=== PATIENT | male | born 1970 | race Caucasian/White ===

== ENCOUNTER 2020-01-03 19:54 | Emergency (ER) | payer OTHER, SELFPAY ==
[2020-01-03 20:19] VITALS: BP 148/88; PULSE 91; RESP 18; TEMP 36.6; O2SAT 98; BMI 28.4
--- NOTE | 2020-01-03 21:08 | ED_ITS ---
HPI - Head Injury General: Chief complaint: Head Injury Stated complaint: head lac Time Seen by Provider: 01/03/20 21:08 Source: patient Mode of arrival: ambulatory Limitations: no limitations History of Present Illness: HPI Narrative: Patient was on the boat and slipped and fell hitting his head against the side of the boat. No loss of consciousness was reported. Patient appears well. Patient is intoxicated but responds appropriately to question. Patient appears in no pain. MD Complaint: head injury Review of Systems General: Reports: 10 or more systems reviewed and unremarkable except in HPI and below Skin/Breast: Reports: other (Scalp laceration) Physical Exam Const: COMMON NORMALS: no acute distress and patient oriented x3 GENERAL APPEARANCE: cooperative HENMT: COMMON NORMALS: TM's normal bilaterally and Normal external nose present HEAD & SCALP: normal to inspection and other (4 cm linear laceration to the right frontal scalp.) NOSE: Normal external nose present TYMPANIC MEMBRANE: TM's normal bilaterally MOUTH: Normal oral and palatal mucosa present THROAT: posterior oropharynx normal Eye: GENERAL EYE: appearance normal, both eyes and all related structures Neck/C-Spine: COMMON NORMALS: full ROM Lymph: LYMPHATIC: no lymphadenopathy noted Chest: COMMONS NORMALS: normal inspection of the chest Resp: COMMON NORMALS: normal respiratory effort EFFORT & INSPECTION: Yes able to speak in complete sentences Cardio: COMMON NORMALS: regular rate and regular rhythm RATE: regular rate RHYTHM: regular rhythm GI: COMMON NORMALS: non-tender : COMMON NORMALS: Yes no CVA tenderness BLADDER/KIDNEY EXAM: Yes no CVA tenderness Back/Pelvis: COMMON NORMALS: no CVA tenderness and thoracic and lumbar spine normal to inspection Extremity: COMMON NORMALS: normal to inspection Neuro: COMMON NORMALS: patient oriented x3 and moves all extremities Psych: COMMON NORMALS: mental status grossly normal and cooperative Skin: COMMON NORMALS: no rashes or lesions noted GENERAL SKIN EXAM: no rashes or lesions noted Procedures Laceration Laceration 1: Site: scalp Size (cm): 5 Description: linear Depth: simple, single layer Local Anesthetic: lidocaine 1% and with epi Amount of anesthesia used (mL): 6 Pre-repair: wound explored and irrigated extensively Skin layer closed with: other (staple) Number of sutures: 10 Technique: simple, interrupted Course Vital Signs: Vital signs: Vital Signs Temperature 97.9 F 01/03/20 20:19 Pulse Rate 91 01/03/20 20:19 Respiratory Rate 18 01/03/20 20:19 Blood Pressure 148/88 01/03/20 20:19 Pulse Oximetry 98 01/03/20 20:19 MDM - Head Injury MDM Narrative: Medical decision making narrative: Patient comes in with injury to the right frontal scalp. On exam he has a laceration to the right frontal scalp. No focal neural deficits were noted. Patient was cooperative. Patient did refuse CT scan of the head. Spouse was present and talked with the patient about getting the CT but patient adamantly refused. Pupils were equal and reactive. No tenderness was noted on the scalp no crepitus or depression of the skull was noted. Differential diagnosis includes but not limited to skull fracture, scalp laceration, intracranial bleeding. Wound was repaired with josafat. Patient tolerated well. Reviewed exam and recommendations for follow- up or return to the ER. Spouse reported understanding. Discharge Plan Discharge Patient Disposition: Home, Self-Care Clinical Impression: Laceration of scalp Qualifiers: Encounter type: initial encounter Qualified Code(s): S01.01XA - Laceration without foreign body of scalp, initial encounter Condition: Stable Discharge Orders: Discharge Order (Routine); Ordered 01/03/20 Ordered By: Herman Goodman Discharge Diet: Usual diet Discharge Activity: Increase activity as tolerated Patient Instructions: Staple Care (ED) Activity Restrictions/Additional Instructions: Keep wound clean and dry for the next 48 hours. After that gently wash with mild soap and water. Patient should be monitored for the next 24 hours for persistent vomiting, seizure episodes, or worsening mentation. Tylenol or ibuprofen for pain. [place] out in 7 to 10 days. Monitor wound for signs of infection such as fever or redness. Follow-up with primary care in 1 week. Return to the ER for worsening signs and symptoms. Coding Level of Care Code ED [employer] for Jason Farris Exam Comprehensive
[2020-01-03 21:51] VITALS: BP 137/73; PULSE 92; RESP 18; O2SAT 96
== END 2020-01-03 21:53 | disposition home or self-care (01) ==
LOC: ER 21:55
PROVIDERS: Emergency Provider Nurse Practitioner Family
DX: S01.01XA Laceration without foreign body of scalp, initial encounter (principal); W01.0XXA Fall on same level from slipping, tripping and stumbling without subsequent striking against object, initial encounter
CPT/HCPCS: 12013; 12345; 99282